=== PATIENT | female | born 1980 | race African-American/Black ===

== ENCOUNTER 2016-05-22 05:41 | Emergency (ER) | payer OTHER ==
[~2016-05-22] VITALS: Ht 157.5 cm; Wt 113.5 kg
[2016-05-22 05:44] VITALS: Ht 157.5 cm; Wt 113.5 kg
--- NOTE | 2016-05-22 07:05 | RADRPT ---
PROCEDURE: Obstetrical ultrasound. CLINICAL INDICATION: Vaginal bleeding. TECHNIQUE: Multiple sonographic images of the pelvis were obtained with transabdominal technique. Images were obtained with licea scale and color Doppler. COMPARISON: No prior studies are available for comparison. FINDINGS: There is an intrauterine gestational sac with a pole identified. No heart tones are iden tified. The crown-rump length averages 2.44 cm, compatible with 9 weeks and 1 day. The mean sa c diameter averages 3.45 cm, compatible with 8 weeks and 4 days. A yolk sac is not identified. No lagunas bchorionic collection is identified. There is no pelvic free fluid. Bilateral ovaries are not visualized. There is no suspicious adnexal mass identified. IMPRESSION: Single intrauterine with an estimated gestational age of 8 weeks and 6 days. No hea rt tones are identified compatible early failed . Bilateral ovaries not visualized. .Aneesh Arambula MD, MD Date Time Electronically viewed and signed by .Aneesh Arambula MD, on 05/22/2016 07:04 .T/
[2016-05-22 07:07] LABS: ADD SCAN DIFF NO
[2016-05-22 07:16] LABS: BASOPHILS % 0.4 % (0.0-2.0); EOSINOPHILS # 0.1 10^3/ul (0.0-0.5); EOSINOPHILS % 1.8 % (0.0-7.0); HEMATOCRIT 39.6 % (37.0-47.0); HEMOGLOBIN 13.6 g/dl (12.0-16.0); LYMPHOCYTES # 1.2 10^3/ul (0.8-2.9); LYMPHOCYTES % 17.5 % (15.0-51.0); MEAN CORPUSCULAR HGB CONC 34.3 g/dl (32.0-37.0); MEAN CORPUSCULAR VOLUME 87.2 fl (82.0-101.0); MEAN PLATELET VOLUME 9.9 fl (7.4-10.4); MONOCYTE # 0.7 10^3/ul (0.3-0.9); MONOCYTES % 10.5 % (0.0-11.0); NEUTROPHIL # 4.7 10^3/ul (1.6-7.5); NEUTROPHILS % 69.5 % (39.0-77.0); PLATELET COUNT 279 10^3/UL (140-415); RED BLOOD COUNT 4.54 10^6/ul (4.20-5.40); WHITE BLOOD COUNT 6.7 10^3/ul (4.8-10.8)
[2016-05-22 07:47] LABS: ADD UMIC YES; URINE BILIRUBIN (Dip) NEGATIVE (NEGATIVE); URINE BLOOD (Dip) 1+ (NEGATIVE); URINE COLOR LT. YELLOW (YELLOW); URINE GLUCOSE (Dip) NEGATIVE (NEGATIVE); URINE KETONES (Dip) NEGATIVE (NEGATIVE); URINE LEUKOCYTE ESTERASE (Dip) NEGATIVE (NEGATIVE); URINE NITRITE (Dip) NEGATIVE (NEGATIVE); URINE TOTAL PROTEIN (Dip) NEGATIVE (NEGATIVE); URINE UROBILINOGEN (Dip) 0.2 E.U./dL (0.1-1.0)
[2016-05-22 07:59] LABS: URINE RBCS 0-2 /HPF (0)
--- NOTE | 2016-05-22 10:03 | ERD ---
DATE OF SERVICE: HISTORY OF PRESENT ILLNESS: The patient is a 35-year-old female coming in complaining of vaginal bl eeding with some pelvic pain. The patient believes she is about 11 weeks . She started hav ing bleeding 3 days ago with some clotting. G1, P0, A0. Her primary OB is Dr. Lincoln. She has had no abnormalities in the up to this point. No back pain, no vomiting, no fevers. PAST MEDICAL HISTORY: Denies medical problems. ALLERGIES: PENICILLIN. PAST SURGICAL HISTORY: Denies. SOCIAL HISTORY: Denies. REVIEW OF SYSTEMS: A 12-point review of systems was done. Refer to HPI for positives, all other sy stems negative. PHYSICAL EXAMINATION: VITAL SIGNS: Temperature is 97.4, pulse 109, blood pressure is 134/84, respiratory rate 20, O2 satu ration 100% on room air. Pain intensity 8/10. GENERAL: The patient is well-appearing, well-nourished, no acute distress. HEART: Regular rate and rhythm. No murmurs, clicks, rubs or gallops. No S3 or S4. CHEST: Clear to auscultation bilaterally. There are no rales, wheezes or rhonchi. HEENT: Atraumatic. Conjunctivae are pink. Pupils equal, round, and reactive to light. There is no s cleral icterus. Tympanic membranes clear bilaterally. Oropharynx clear. No nystagmus or photophobia . ABDOMEN: Soft, nontender and nondistended. Good bowel sounds. No rebound or guarding. No gross elsie tonitis. No gross organomegaly or masses. No Sanders sign or McBurney point tenderness. BACK: No midline or flank tenderness. EMERGENCY ROOM COURSE: The patient had blood work done in the ER. CBC was within normal limits. B eta quant is 9881. The patient's urine showed 1+ hemoglobin, negative leukocytes, negative nitrites . The patient's blood type is B positive and obstetric ultrasound showed single intrauterine pregna ncy with estimated gestational age of 8 weeks and 6 days. No heart tones are identified, comp atible with early failed , bilateral ovaries not identified. DIAGNOSIS: Miscarriage, threatened . MEDICAL DECISION MAKING: I have low suspicion for ectopic , low suspicion for hemodynamic instabilities. The patient's hemoglobin is stable. The patient does not have signs of urinary trac t infection. The patient is Rh positive and does not require RhoGAM injection. The patient is nont oxic-appearing. DISCHARGE: The patient is discharged stable. The patient is told to follow up with Dr. Lincoln as p reviously scheduled today. The patient was told if symptoms change or worsen prior to her appointme nt, to return to the ER. All other questions answered at time of discharge. Discharge summary give n at the time of departure. The patient understood and complied with plan. Dictated By: TONY CRUM for SV[facility] LAI/NTS Conf#: [id number] DID#: [id number]
== END 2016-05-22 08:20 | disposition home or self-care (01) ==
LOC: FTE 05:41
DX: O03.9 Complete or unspecified spontaneous abortion without complication (principal); R10.2 Pelvic and perineal pain
CPT/HCPCS: 36415; 76801; 81001; 81003; 84702; 85025; 86900; 86901

== ENCOUNTER 2017-02-08 11:21 | Inpatient (IN) | payer OTHER ==
[~2017-02-08] VITALS: Ht 162.6 cm; Wt 114.5 kg
[2017-02-08] MEDS ORDERED: AZITHROMYCIN 250 MG TAB PO ONE (12:00)
[2017-02-08] MEDS ORDERED: BETAMET NA PHOS/AC(6 MG/ML) 5ML INJ IM ONE (12:00)
[2017-02-08 12:41] LABS: BASOPHIL # 0.1 10^3/ul (0.0-0.1); BASOPHILS % 0.4 % (0.0-2.0); EOSINOPHILS % 0.4 % (0.0-7.0); HEMOGLOBIN 12.9 g/dl (12.0-16.0); LYMPHOCYTES # 2.1 10^3/ul (0.8-2.9); LYMPHOCYTES % 18.6 % (15.0-51.0); MEAN CORPUSCULAR HEMOGLOBIN 31.3 pg (29.0-33.0); MEAN CORPUSCULAR HGB CONC 34.9 g/dl (32.0-37.0); MEAN CORPUSCULAR VOLUME 89.8 fl (82.0-101.0); MEAN PLATELET VOLUME 10.2 fl (7.4-10.4); MONOCYTE # 1.1 10^3/ul (0.3-0.9); NEUTROPHIL # 7.8 10^3/ul (1.6-7.5); NEUTROPHILS % 69.3 % (39.0-77.0); PLATELET COUNT 246 10^3/UL (140-415); RED BLOOD COUNT 4.12 10^6/ul (4.20-5.40); RED CELL DISTRIBUTION WIDTH 13.6 % (11.5-14.5); WHITE BLOOD COUNT 11.2 10^3/ul (4.8-10.8)
[2017-02-08 12:43] LABS: ADD UMIC NO; UR ASCORBIC ACID NEGATIVE (NEGATIVE); UR BILIRUBIN (Dip) NEGATIVE (NEGATIVE); UR BLOOD (Dip) NEGATIVE (NEGATIVE); UR CLARITY CLEAR (CLEAR); UR COLOR YELLOW (YELLOW); UR GLUCOSE (Dip) NEGATIVE (NEGATIVE); UR KETONES (Dip) NEGATIVE (NEGATIVE); UR LEUKOCYTE ESTERASE (Dip) NEGATIVE Leu/ul (NEGATIVE); UR NITRITE (Dip) NEGATIVE (NEGATIVE); UR SPECIFIC GRAVITY (Dip) 1.011 (1.003-1.030); UR TOTAL PROTEIN (Dip) NEGATIVE (NEGATIVE); UR UROBILINOGEN (Dip) NEGATIVE (NEGATIVE)
[2017-02-08 12:53] LABS: INR 0.83; PROTIME 11.5 Sec (11.9-14.9); PT RATIO 0.9
[2017-02-08 12:54] LABS: ALBUMIN 3.5 g/dl (3.3-4.9); ALBUMIN/GLOBULIN RATIO 1.02; BILIRUBIN,INDIRECT 0.3 mg/dl (0-1.1); BILIRUBIN,TOTAL 0.3 mg/dl (0.2-1.3); CALCIUM 9.6 mg/dl (8.4-10.2); CREATININE 0.76 mg/dl (0.44-1.00); PARTIAL THROMBOPLASTIN TIME 26.4 Sec (25.0-35.0); POTASSIUM 3.6 mmol/L (3.5-5.1); TOTAL PROTEIN 6.9 g/dl (6.1-8.1); URIC ACID 6.2 mg/dl (3.1-7.9)
[2017-02-08 13:13] VITALS: Ht 162.6 cm; Wt 114.5 kg
[2017-02-08 13:14] VITALS: BP 139/91; PULSE 80; RESP 18
--- NOTE | 2017-02-08 13:49 | HP ---
Date/Time of Note Date/Time of Note DATE: 02/08/17 TIME: 12:38 OB - History Hx of Present Free Text/Dictation 36 y.o. G1 with an IUP at 25w 1d came in today for her regular visit and was found to have elevated BP of 160/100. First trimester BP's were 130-140/80-84. 2nd trimester BP's were 122/80 until today.Pt reports swelling in her legs x 1 week. Some headaches, no epigastric pain, no visual changes. She also reports an upper respiratory infection for the last 3 weeks with green phlegm production and constant coughing that doesn't seem to be improving. She has been taking Mucinex, Robitussin and some other products. Last Menstrual Period: Aug 14, 2016 Estimated Due Date: May 21, 2017 : 2 Para: 0 Spontaneous : 1 Care: Good Care Ultrasounds: Normal mid trimester US Abnormal Ultrasound Findings: Bilateral notched waveforms on uterine artery dopplers. Last US 01/25 with perinatology EFW was 526 grams, anterior placenta. Cx length was 4.5 cm. Medical Complications: Respiratory (Asthma; Pt takes Proventil prn.) Other Concerns: Normal NIPT, male fetus. 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 Spouse with alpha thalassemia. Past Family/Social History * Past Medical, Surgical, Family and Obstetric Histories reviewed from chart. Blood Type: B+ Rubella: immune RPR/VDRL: Negative GBS Status: Unknown HBsAG: Negative OB Admission Exam Vital Signs Vital Signs BP 160/100 54" tall. 252# Physical Exam HEENT: WNL Heart: Rhythm Normal Lungs: Clear Abdomen: WNL Extremities: Edema (3+ LE's) Cervical Dilatation: None Effacement: 0% Heart Rate: 150's Decelerations: No Decelerations Contractions on Admission: None OB Assessment/Plan Other Assessment: Possible PIH. Asthma. AMA. Depression/anxiety. Other plan: PIH evaluation. Beta methasone. Ej. ALISA TOMPKINS MD Feb 08, 2017 13:49
--- NOTE | 2017-02-08 16:36 | TRIAGE ---
OB Triage Datetime Report Generated by CPN: 02/08/2017 16:36 Datetime: 02/08/2017 16:15 Stage of : OB Triage Datetime: 02/08/2017 16:07 Labor Evaluation Frequency: 0 Resting Tone Van [place]: Relaxed Comments: OFF DUE TO GESTATIONAL AGE Pain Assessment Pain Scale: 0 Pain Presence: None/Denies Pain Type: N/A Pain Goal: 3 Pain Relief Measures: Comfort Measures Datetime: 02/08/2017 15:44 Stage of : OB Triage Datetime: 02/08/2017 15:11 Stage of : OB Triage Datetime: 02/08/2017 15:01 Labor Evaluation Frequency: 0 Monitor Mode: External Resting Tone [place]: Relaxed Comments: OFF DUE TO GESTATIONAL AGE Pain Assessment Pain Scale: 0 Pain Presence: None/Denies Pain Type: N/A Pain Goal: 3 Pain Relief Measures: Comfort Measures Datetime: 02/08/2017 14:01 Labor Evaluation Frequency: 0 Monitor Mode: External Resting Tone [place]: Relaxed Comments: OFF DUE TO GESTATIONAL AGE Pain Assessment Pain Scale: 3 Pain Presence: Constant Pain Type: Ache Pain Location: Head Pain Goal: 3 Pain Relief Measures: Comfort Measures Datetime: 02/08/2017 13:07 Labor Evaluation Frequency: 0 Monitor Mode: External Resting Tone [place]: Relaxed Comments: OFF DUE TO GESTATIONAL AGE Pain Assessment Pain Scale: 5 Pain Presence: Constant Pain Type: Ache Pain Location: Head Pain Goal: 3 Pain Relief Measures: Comfort Measures Datetime: 02/08/2017 11:46 Stage of : OB Triage Assessment Type: Triage EGA: 25.3 Maternal Assessment Level of Consciousness: Fully Conscious DTR's/Clonus: DTRs 2+; No Clonus Respiratory Effort: Unlabored; Regular Rhythm; Equal Expansion Breath Sounds, Left: Clear and Equal Breath Sounds, Right: Clear and Equal Nausea/Vomiting: Denies RUQ Epigastric Pain: Denies Facial Edema: None Temperature Route: Axillary Fall Risk Assessment History of Falling: (0) No Secondary Diagnosis: (0) No Ambulatory Aid: (0) Bedrest/Nurse Assist IV Therapy: (0) No Gait: (0) Normal/Bedrest/Immobile Mental Status: (0) Oriented to Own Ability Fall Score: 0 Fall Risk Score Definition: No Risk: No action required Labor Evaluation Frequency: 0 Monitor Mode: External Pattern: Normal: <= 5 Contractions in 10 Minutes Resting Tone [place]: Relaxed Heart Rate FHR Baseline Rate: 145 Monitor Mode: External US Decelerations: None Pain Assessment Pain Scale: 6 Pain Presence: Constant Pain Type: Ache Pain Location: Head Pain Goal: 3 Pain Relief Measures: Comfort Measures Datetime: 02/08/2017 11:45 Time of Arrival: 02/08/2017 11:20 Arrived By: Ambulatory Arrived From: Office Chief Complaint: SENT FROM DR FAULKNER FOR PIH, DENIES LEAKING OF FLUID, BLEEDING OR UC'S Movement: Present Contractions: Denies/Absent Rupture of Membranes: Denies Vaginal Bleeding: None Vaginal Discharge: Denies Recent Sexual Intercouse: Denies Abdominal Trauma: Not Applicable Patient Complaints: Headache; Visual Disturbance Time Provider Notified: 02/08/2017 11:00 Provider Notified: TURNER Initial Plan: MONITOR, PIH PANEL, BETAMETHASONE, AZITHROMYCIN
[2017-02-08] MEDS: LACTATED RINGER'S 1,000 ML IV SCH (18:10)
[2017-02-08] MEDS: ACETAMINOPHEN 325 MG TAB PO PRN (18:45)
[2017-02-08] MEDS: HYDROCODONE/HOMATROPINE 5ML CUP PO PRN (19:58)
[2017-02-08] MEDS: LABETALOL 100 MG TAB PO SCH (21:35)
[2017-02-09] MEDS: ACETAMINOPHEN 325 MG TAB PO PRN ×3 (00:06→18:08)
[2017-02-09] MEDS: CEPASTAT LOZENGE MT PRN ×4 (00:07→20:30)
[2017-02-09] MEDS: LACTATED RINGER'S 1,000 ML IV SCH ×2 (01:07→08:35)
[2017-02-09] MEDS: HYDROCODONE/HOMATROPINE 5ML CUP PO PRN ×3 (02:03→18:07)
[2017-02-09] MEDS: LABETALOL 100 MG TAB PO SCH ×2 (08:36→20:34)
[2017-02-09] MEDS ORDERED: AZITHROMYCIN 250 MG TAB PO SCH (09:00)
[2017-02-09] MEDS ORDERED: BETAMET NA PHOS/AC(6 MG/ML) 5ML INJ IM ONE (12:50)
[2017-02-09 17:47] LABS: SCRET 0.76 mg/dl (0.44-1.00)
--- NOTE | 2017-02-09 20:04 | PD.PPDC ---
[employer]RIAGE AND FAMILY [employer]ER Discharge Instruction Condition Patient Condition: Fair Diet Diet: Resume Regular Diet Activity/Restrictions Activity: Bedrest May be up to bathroom May be up for meals May Shower Restrictions: No Exercising No Lifting No Driving Minimize Walking Follow-up Follow-up with Physician: 2, Day/Days Return to clinic for OB Instructions: Blurried Vision Headache Comment: Or epigastric pain. ALISA TOMPKINS MD Feb 09, 2017 20:04
[2017-02-09] MEDS ORDERED: LABE100T3 PO (20:07)
--- NOTE | 2017-02-09 20:11 | DS ---
Date/Time of Note Date/Time of Note DATE: 02/09/17 TIME: 20:10 Obstetrical Discharge Record Final Diagnosis Final Diagnosis: not delivered Other Final Diagnosis IUP at 25 weeks 4 days. Mild PIH. Complications Preg induced Hypertension (Mild) Augmentation: No Induction: No Condition on Discharge Physical Assessment Last Vitals: 150/65 Voiding: Yes Bowel Movement: Yes Breast: Soft, non-tender Fundus: Other (Gravid) Calf Tenderness: No Patient Condition: ALISA Boyle MD Feb 09, 2017 20:11
== END 2017-02-09 20:45 | disposition home or self-care (01) | DRG 781 ==
LOC: OBT 11:21 → L-D 11:21 → OBT 16:25 → PP1 16:25
PROVIDERS: ADMIT Obstetrics & Gynecology; ATTEND Obstetrics & Gynecology
DX: O13.2 Gestational [pregnancy-induced] hypertension without significant proteinuria, second trimester (principal); O99.342 Other mental disorders complicating pregnancy, second trimester; Z3A.24 24 weeks gestation of pregnancy; O09.513 Supervision of elderly primigravida, third trimester
CPT/HCPCS: 36415; 80053; 81003; 82575; 84156; 84560; 85025; 85384; 85610; 85730; G0463; J0702; J7120

== ENCOUNTER 2017-02-25 16:10 | Inpatient (IN) | END 2017-03-02 17:45 | disposition home or self-care (01) | DRG 765 ==

== ENCOUNTER 2017-03-07 04:50 | Emergency (ER) | END 2017-03-07 05:30 | disposition home or self-care (01) ==